=== PATIENT | male | born 1945 | race Caucasian/White ===

== ENCOUNTER 2017-01-04 12:40 | Emergency (ER) | payer MEDICARE ==
[~2017-01-04] VITALS: Ht 175.3 cm; Wt 84.0 kg
[~2017-01-04 12:40] MED LIST: HYDR-3533 PO; IPRAAER INH; LEVO175T2 PO; SYMB80AE INH; VIAG50TA PO
[2017-01-04 12:43] VITALS: BP 178/76; PULSE 95; RESP 16; TEMP 98.2; O2SAT 98
[2017-01-04 13:26] VITALS: BP 128/61; PULSE 88; RESP 17; O2SAT 98
[2017-01-04] MEDS ORDERED: IPRAAER INH (13:30)
[2017-01-04] MEDS ORDERED: VIAG50TA PO (13:30)
[2017-01-04] MEDS ORDERED: LEVO.2 PO (13:30)
[2017-01-04] MEDS ORDERED: SYMB160A INH (13:30)
--- NOTE | 2017-01-04 13:30 | PD ---
HPI Chief Complaint: Hypertension Time Seen by Provider: 13:29 Travel History International Travel<30 days: No Contact w/Intl Traveler<30days: No Traveled to known affect area: No History of Present Illness HPI 71-year-old male came to the emergency room with history of headache and hypertension. Patient has history of hypertension and has had headache for past 3-4 days. However he has not taken his blood pressure medications for past 1 year. His blood pressure in triage was 170s systolic. Patient says the headache is like a tight band across his head. He took his 's losartan in past 3 days. They checked his blood pressure at home and it was more than 200s and that's when they decided to come to the emergency room. His headache currently is 4-5 out of 10. No history of chest pain or shortness of breath. No history of any weakness or numbness in any part of the body. PFSH Past Medical History Narrative Medical List of his past medical, surgical, social and family history reviewed from the nursing note. Arthritis: Yes Asthma: Yes Anxiety: Yes Depression: Yes Heart Rhythm Problems: No Cancer: No Cardiac Catheterization: No Cardiovascular Problems: Yes High Cholesterol: No Chest Pain: No Congestive Heart Failure: No COPD: Yes Cerebrovascular Accident: Yes (TIA) Diabetes: No Diminished Hearing: No Endocrine: Yes Gastrointestinal Disorders: Yes GERD: Yes Glaucoma: No Genitourinary: No Headaches: Yes Hepatitis: No Hiatal Hernia: Yes (REPAIRED) Hypertension: Yes Immune Disorder: No Musculoskeletal: Yes (RIGHT HIP PAIN) Neurologic: Yes (TIA) Psychiatric: No Reproductive: No Respiratory: Yes (COPD) Immunizations Current: Yes Migraines: No Myocardial Infarction: Yes (1981, 1985) Pneumonia: Yes Seizures: Yes (R/T ETOH) Sleep Apnea: Yes Thyroid Disease: Yes Ulcer: Yes Past Surgical History Abdominal Surgery: Yes (- 1999) Cardiac Surgery: No Cholecystectomy: Yes Coronary Artery Bypass Graft: No Ear Surgery: No Endocrine Surgery: No Eye Surgery: No Genitourinary Surgery: No Oral Surgery: Yes (TONSILLECTOMY) Pacemaker: No Thoracic Surgery: No Tonsillectomy: Yes (AGE 18) Other Surgery: Yes Social History Alcohol Use: No Tobacco Use: Yes (1-1.5 PPD) Substance Use: No Allergies-Medications (Allergen,Severity, Reaction): Coded Allergies: Penicillin (Verified Allergy, Mild, rash, 7/17/17) Comments List of his allergies reviewed from the nursing note. Reported Meds & Prescriptions Reported Meds & Active Scripts Active Ixkdohnpxc-Rauhlgyvdwqvd-Peitcaew 50-300-40 Mg Cap 1 Cap PO Q4H PRN Do not exceed 6 capsules/day. Losartan (Losartan Potassium) 25 Mg Tab 25 Mg PO DAILY Reported Synthroid (Levothyroxine Sodium) 200 Mcg Tab 200 Mcg PO DAILY Viagra (Sildenafil Citrate) 50 Mg Tab 50 Mg PO DAILY PRN Combivent Respimat Inh (Ipratropium-Albuterol Inh) 20-100 [facility]/Act Aero 1 Puff INH QID Symbicort Inh (Budesonide/Formoterol Fumarate) 160-4.5 Mcg/Act Aero 1 Puff INH Q12HR Narrative Medication List of his home medications reviewed from the nursing note. Review of Systems Except as stated in HPI: all other systems reviewed are Neg Physical Exam Narrative GENERAL: Awake, alert, moderate distress, anxious SKIN: Focused skin assessment warm/dry. HEAD: Atraumatic. Normocephalic. EYES: Pupils equal and round. No scleral icterus. No injection or drainage. ENT: No nasal bleeding or discharge. Mucous membranes pink and moist. NECK: Trachea midline. No JVD. CARDIOVASCULAR: Regular rate and rhythm. No murmur appreciated. RESPIRATORY: No accessory muscle use. Clear to auscultation. Breath sounds equal bilaterally. GASTROINTESTINAL: Abdomen soft, non-tender, nondistended. Hepatic and splenic margins not palpable. MUSCULOSKELETAL: No obvious deformities. No clubbing. No cyanosis. No edema. NEUROLOGICAL: Awake and alert. No obvious cranial nerve deficits. Motor grossly within normal limits. Normal speech. PSYCHIATRIC: Appropriate mood and affect; insight and judgment normal. Data Data Last Documented VS Orders Ct Brain W/O Iv Contrast(Rout) (01/04/17 ) [facility] Medical Decision Making Medical Screen Exam Complete: Yes Emergency Medical Condition: Yes Medical Record Reviewed: Yes Differential Diagnosis Intracranial bleed, tension headache Narrative Course 1:57 PM awaiting for the CT scan to be done and resulted. The CT scan is negative patient will be discharged home. The blood pressure seems to be within acceptable range right now. 3:[address] scan is within normal limit. The blood pressure continues to stay within acceptable range. I'll discharge him home. Procedures EKG Prior to Arrival: No Diagnosis Primary Impression: Essential hypertension Additional Impressions: Noncompliance with medication regimen Headache Qualified Code: R51 - Acute intractable headache, unspecified headache type Referrals: Primary Care Physician 2 days Additional Instructions: Please return to the ER if the condition worsens or any other new concerns. Otherwise take the medication as per the prescription direction. He need to continue taking your blood pressure medication without stopping. Take the headache medication as per the prescription direction. Med/Other Pt SpecificInfo: Prescription(s) given Scripts Yeoajgozcd-Lyptiyeitutmh-Qhfvhrkx 50-300-40 Mg Cap1 Cap PO Q4H PRN (HEADACHE) # 20 CAP Ref 0 Do not exceed 6 capsules/day. Prov:Francisco Alfaro MD 01/04/17 Losartan 25 Mg Tab25 Mg PO DAILY #30 TAB Ref 0 Prov:Francisco Alfaro MD 01/04/17 Disposition: 01 DISCHARGE HOME Condition: Stable Francisco Alfaro MD Jan 04, 2017 13:29 Prov:Francisco Alfaro MD 01/04/17 Losartan 25 Mg Tab25 Mg PO DAILY #30 TAB Ref 0 Prov:Francisco Alfaro MD 01/04/17 Disposition: 01 DISCHARGE HOME Condition: Stable Francisco Alfaro MD Jan 04, 2017 13:29
[2017-01-04] MEDS ORDERED: LOSA25TA PO ×2 (13:33→15:46)
[2017-01-04 14:45] VITALS: BP 142/67; PULSE 84; RESP 16; O2SAT 99
--- NOTE | 2017-01-04 15:36 | RADRPT ---
EXAM DATE/TIME: 01/04/2017 15:13 [place] COMPARISON: No previous studies available for comparison. INDICATIONS : Patient complains of headache and high blood pressure. RADIATION DOSE: 35.21 CTDIvol (mGy) MEDICAL HISTORY : Cardiovascular disease. Hypertension. Seizures.COPD SURGICAL HISTORY : None. ENCOUNTER: Initial ACUITY: 1 day PAIN SCALE: 5/10 LOCATION: cranial TECHNIQUE: Multiple contiguous axial images were obtained of the head. Using automated exposure control and adj ustment of the mA and/or kV according to patient size, radiation dose was kept as low as reasonably a chievable to obtain optimal diagnostic quality images. DICOM format image data is available electro nically for review and comparison. FINDINGS: CEREBRUM: The ventricles are normal for age. No evidence of midline shift, mass lesion, hemorrhage or acute in farction. No extra-axial fluid collections are seen. POSTERIOR FOSSA: The cerebellum and brainstem are intact. The 4th ventricle is midline. The cerebellopontine angle i s unremarkable. EXTRACRANIAL: The visualized portion of the orbits is intact. SKULL: The calvaria is intact. No evidence of skull fracture. CONCLUSION: No acute disease. Vikram Echeverria Jr., MD on January 04, 2017 at 15:33 Board Certified Radiologist. This report was verified electronically.
[2017-01-04] MEDS ORDERED: BUTA1CAP5 PO (15:46)
[2017-01-04 16:03] VITALS: BP 130/78; TEMP 97.8
== END 2017-01-04 16:03 | disposition home or self-care (01) ==
LOC: NEPD 12:40
DX: I10 Essential (primary) hypertension (principal); Z91.14 Patient's other noncompliance with medication regimen; R51 Headache; E07.9 Disorder of thyroid, unspecified; G47.30 Sleep apnea, unspecified; I25.2 Old myocardial infarction; F17.200 Nicotine dependence, unspecified, uncomplicated; Z87.39 Personal history of other diseases of the musculoskeletal system and connective tissue; Z87.09 Personal history of other diseases of the respiratory system; Z86.59 Personal history of other mental and behavioral disorders; Z86.79 Personal history of other diseases of the circulatory system; Z87.19 Personal history of other diseases of the digestive system; Z86.69 Personal history of other diseases of the nervous system and sense organs
CPT/HCPCS: 70450; 99284